=== PATIENT | female | born 1965 | race Caucasian/White ===

== ENCOUNTER 2019-04-08 19:11 | Emergency (ER) | payer OTHER ==
[~2019-04-08] VITALS: Ht 162.6 cm; Wt 74.8 kg
[2019-04-08 19:40] LABS: ABSOLUTE BASOPHILS 0.1 thou/uL (0.0-0.2); ABSOLUTE LYMPHOCYTES 1.9 thou/uL (0.8-5.3); ABSOLUTE MONOCYTES 1.6 thou/uL (0.0-1.2); ABSOLUTE NEUTROPHILS 13.2 thou/uL (1.6-8.1); BASOPHILS 0.6 %; HEMATOCRIT 41.8 % (37.0-47.0); HEMOGLOBIN 13.8 gm/dL (12.0-15.0); LYMPHOCYTES 11.4 %; MCH 27.2 pg (26.0-34.0); MCHC 32.9 g/dL (28.0-37.0); MCV 82.7 fL (80.0-100.0); MONOCYTES 9.3 %; MPV 7.2 fl. (7.2-11.1); NUCLEATED RBCS 0 /100WBC; PLATELET COUNT* 372 thou/uL (150-400); POLYS 78.7 %; RBC 5.05 mil/uL (4.20-5.00); RDW-CV 13.4 % (10.5-14.5); WBC 16.9 thou/uL (4.0-11.0)
[2019-04-08 19:47] LABS: CALCIUM 8.4 mg/dL (8.5-10.1); CREATININE 1.1 mg/dL (0.6-1.3)
[2019-04-08 19:52] LABS: ALBUMIN 3.1 g/dL (3.4-5.0); TOTAL BILIRUBIN 0.6 mg/dL (<0.1-1.0); TOTAL PROTEIN 7.4 g/dL (6.4-8.2)
[2019-04-08 19:54] LABS: POTASSIUM 2.7 mmol/L (3.5-5.1)
[2019-04-08 20:30] LABS: URINE BILIRUBIN NEGATIVE (Negative); URINE BLOOD 2+ (Negative); URINE CLARITY CLEAR; URINE COLOR YELLOW; URINE GLUCOSE-RANDOM NEGATIVE (Negative); URINE KETONES 1+ (Negative); URINE LEUKOCYTES-REFLEX NEGATIVE (Negative); URINE NITRITE-REFLEX NEGATIVE (Negative); URINE PROTEIN 2+ (Negative)
[2019-04-08 20:39] LABS: AMP/METHAMP Negative (Negative); BARBITURATES Negative (Negative); BENZODIAZEPINES Negative (Negative); COCAINE Negative (Negative); METHADONE Negative (Negative); MUCUS 0-3 Light strn/LPF (None Seen); OPIATES Negative (Negative); PCP Negative (Negative); THC Negative (Negative)
[2019-04-08 20:40] LABS: HYALINE CASTS 0-3 Few /LPF (None Seen); SQUAMOUS >10 Many /LPF (0-3); URINE RBC 3-10 Few /HPF (0-2)
[2019-04-08 20:41] LABS: BACTERIA-REFLEX None Seen /HPF (None Seen); CRYSTALS None Seen /LPF (None Seen); URINE WBC-REFLEX 0-5 Rare /HPF (0-5)
[2019-04-08 23:34] VITALS: BP 149/95
--- NOTE | 2019-04-09 14:04 | EKG ---
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 : 1965 Requested By: Alvin Watkins Order Number: [id number] MD: Jerry Seals Measurements Intervals [place] Rate: 91 P: 55 IN: 130 QRS: 18 QRSD: 85 T: 66 QT: 370 QTc: 456 Interpretive Statements Sinus rhythm Biatrial enlargement Abnormal R-wave progression, early transition Borderline ST depression, lateral leads No previous ECG available for comparison Electronically Signed On 04-09-2019 14:04:28 CDT by Jerry Seals [email or web address] <ELECTRONICALLY SIGNED> By: Jerry Seals MD, [facility] 04/09/19 1404 45 45 Jerry Seals MD, FACC /EPI
== END 2019-04-08 23:15 | disposition short-term general hospital (02) ==
LOC: M.ERS 19:11
PROVIDERS: Physician Assistant
DX: I67.1 Cerebral aneurysm, nonruptured (principal); I60.9 Nontraumatic subarachnoid hemorrhage, unspecified; E87.6 Hypokalemia; J45.909 Unspecified asthma, uncomplicated; Z88.5 Allergy status to narcotic agent; Z91.041 Radiographic dye allergy status; Z90.710 Acquired absence of both cervix and uterus